=== PATIENT | female | born 1990 | race African-American/Black ===

== ENCOUNTER 2016-07-10 02:37 | Emergency (ER) | payer MEDICAID, OTHER ==
[~2016-07-10] VITALS: Ht 165.1 cm; Wt 52.2 kg
[~2016-07-10 02:37] MED LIST: PROAIR
[2016-07-10] MEDS ORDERED: ONDANSETRON HCL 4MG/2ML VIAL IV STA (03:17)
[2016-07-10] MEDS ORDERED: SODIUM CHLORIDE 0.9% 1,000 ML IV ONE (03:17)
[2016-07-10] MEDS ORDERED: KETOROLAC 30MG/ML VIAL IV STA (03:17)
[2016-07-10] MEDS ORDERED: FAMOTIDINE 20MG/2ML VIAL IV ONE (03:30)
[2016-07-10 04:12] VITALS: BP 108/69
[2016-07-10] MEDS ORDERED: ONDANSETRON HCL 4MG/2ML VIAL IV ONE (05:30)
[2016-07-10] MEDS ORDERED: TRAMADOL 50MG TABLET PO ONE (05:30)
[2016-07-10] MEDS ORDERED: LORAZEPAM 0.5MG TABLET PO ONE (05:45)
== END 2016-07-10 07:50 | disposition home or self-care (01) ==
LOC: ER 02:37
DX: K52.9 Noninfective gastroenteritis and colitis, unspecified (principal); F17.210 Nicotine dependence, cigarettes, uncomplicated; F12.10 Cannabis abuse, uncomplicated
CPT/HCPCS: 71010; 81025; 96361; 96374; 96375; 99284; J1885; J2405; J3490; J7030; Z7610